=== PATIENT | female | born 1935 | race Caucasian/White ===

== ENCOUNTER 2016-12-04 15:05 | Outpatient (CLI) | payer MEDICARE, OTHER | END 2016-12-04 15:06 | disposition home or self-care (01) | DX: E11.9 Type 2 diabetes mellitus without complications (principal) ==

== ENCOUNTER 2016-12-21 | Outpatient (CLI) | payer MEDICARE, OTHER | END 2016-12-21 13:34 | disposition home or self-care (01) | DX: R55 Syncope and collapse (principal) ==

== ENCOUNTER 2016-12-26 | Outpatient (CLI) | payer MEDICARE, OTHER | END 2016-12-26 16:10 | disposition critical access hospital (66) | DX: R55 Syncope and collapse (principal) | CPT/HCPCS: A0425; A0427 ==

== ENCOUNTER 2016-12-26 16:11 | Inpatient (IN) | payer MEDICARE, OTHER ==
[2016-12-26] MEDS ORDERED: SODIUM CHLORIDE FLUSH 0.9% 10 ML SYRINGE IVP PRN (18:17)
[2016-12-26] MEDS: ATORVASTATIN 10 MG TABLET PO SCH (20:12)
[2016-12-26] MEDS: SODIUM CHLORIDE 0.9% 1,000 ML IV SCH (20:12)
[2016-12-26] MEDS: LISINOPRIL 20 MG TABLET PO SCH (20:17)
[2016-12-26] MEDS: SODIUM CHLORIDE FLUSH 0.9% 10 ML SYRINGE IVP SCH (20:18)
[2016-12-26] MEDS ORDERED: DEXTROSE 5% 1,000 ML IV PRN (20:26)
[2016-12-26] MEDS ORDERED: DEXTROSE GEL 37.5 GM TUBE PO PRN (20:26)
[2016-12-26] MEDS ORDERED: DEXTROSE 50% ABBOJECT 25 GM/50 ML SYRINGE IVP PRN (20:26)
[2016-12-26] MEDS ORDERED: GLUCAGON 1 MG/ML VIAL SUBQ PRN (20:26)
[2016-12-26] MEDS ORDERED: ACETAMINOPHEN 325 MG TABLET PO PRN (20:48)
[2016-12-26] MEDS: INSULIN ASPART 300 UNIT/3 ML PEN SUBQ SCH (21:57)
[2016-12-27] MEDS: SODIUM CHLORIDE 0.9% 1,000 ML IV SCH ×2 (05:54→16:11)
[2016-12-27] MEDS: SODIUM CHLORIDE FLUSH 0.9% 10 ML SYRINGE IVP SCH ×3 (05:55→22:38)
[2016-12-27] MEDS: MULTIVITAMIN TABLET PO SCH (08:15)
[2016-12-27] MEDS: LISINOPRIL 20 MG TABLET PO SCH ×2 (08:15→21:09)
[2016-12-27] MEDS: ASPIRIN EC 81 MG TABLET PO SCH (08:15)
[2016-12-27] MEDS: MAGNESIUM OXIDE 400 MG TABLET PO SCH (08:15)
[2016-12-27] MEDS: INSULIN ASPART 300 UNIT/3 ML PEN SUBQ SCH ×4 (08:16→21:08)
[2016-12-27] MEDS ORDERED: INSULIN GLARGINE 300 UNIT/3 ML PEN SUBQ SCH ×3 (09:00→21:00)
[2016-12-27] MEDS: POLYETHYLENE GLYCOL 3350 17 GM PACKET PO SCH (09:09)
[2016-12-27] MEDS ORDERED: traMADol 50 MG TABLET PO SCH (13:00)
[2016-12-27] MEDS: levETIRAcetam 250 MG TABLET PO SCH ×2 (14:29→21:09)
[2016-12-27] MEDS ORDERED: traMADol 50 MG TABLET PO PRN (15:32)
[2016-12-27] MEDS ORDERED: levETIRAcetam 250 MG TABLET PO SCH (21:00)
[2016-12-27] MEDS: ATORVASTATIN 10 MG TABLET PO SCH (21:09)
[2016-12-28] MEDS: SODIUM CHLORIDE 0.9% 1,000 ML IV SCH (01:23)
[2016-12-28] MEDS: SODIUM CHLORIDE FLUSH 0.9% 10 ML SYRINGE IVP SCH (06:45)
[2016-12-28] MEDS: INSULIN ASPART 300 UNIT/3 ML PEN SUBQ SCH ×2 (07:59→11:48)
[2016-12-28] MEDS: MAGNESIUM OXIDE 400 MG TABLET PO SCH (08:37)
[2016-12-28] MEDS: MULTIVITAMIN TABLET PO SCH (08:38)
[2016-12-28] MEDS: POLYETHYLENE GLYCOL 3350 17 GM PACKET PO SCH (08:38)
[2016-12-28] MEDS: LISINOPRIL 20 MG TABLET PO SCH (08:38)
[2016-12-28] MEDS: ASPIRIN EC 81 MG TABLET PO SCH (08:38)
[2016-12-28] MEDS: levETIRAcetam 250 MG TABLET PO SCH (08:39)
[2016-12-28] MEDS ORDERED: INSULIN GLARGINE 300 UNIT/3 ML PEN SUBQ SCH (09:00)
[2016-12-28] MEDS ORDERED: diltiaZEM CD 180 MG CAPSULE PO SCH (09:00)
[2016-12-28] MEDS ORDERED: amLODIPine 5 MG TABLET PO SCH (09:00)
[2016-12-28] MEDS ORDERED: CARBOXYMETHYLCELLULOSE OPHTH DROPS ONE (09:53)
== END 2016-12-28 15:45 | disposition short-term general hospital (02) | DRG 310 ==
DX: I44.1 Atrioventricular block, second degree (principal); R55 Syncope and collapse; E11.9 Type 2 diabetes mellitus without complications; I10 Essential (primary) hypertension; E78.00 Pure hypercholesterolemia, unspecified; I73.9 Peripheral vascular disease, unspecified; M19.90 Unspecified osteoarthritis, unspecified site; Z79.4 Long term (current) use of insulin; Z79.82 Long term (current) use of aspirin; Z87.891 Personal history of nicotine dependence; Z95.828 Presence of other vascular implants and grafts

== ENCOUNTER 2018-03-22 14:33 | Outpatient (CLI) | payer MEDICARE, OTHER ==
[2018-03-22 17:03] LABS: BASOPHILS % (AUTO) 0.7 %; EOSINOPHILS # (AUTO) 0.2 10^3/uL (0.0-0.7); EOSINOPHILS % (AUTO) 3.6 %; HGB - HEMOGLOBIN 14.8 g/dL (12.0-16.0); LYMPHOCYTES # (AUTO) 1.7 10^3/uL (1.5-3.5); LYMPHOCYTES % (AUTO) 25.6 %; MEAN CORPUSCULAR HEMOGLOBIN 28.6 pg (27.0-31.0); MEAN CORPUSCULAR HGB CONC 32.5 g/dL (32.0-36.0); MEAN CORPUSCULAR VOLUME 88.2 fL (81.0-99.0); MEAN PLATELET VOLUME 8.6 fL (7.9-10.8); MONOCYTES # (AUTO) 0.5 10^3/uL (0.0-1.0); MONOCYTES % (AUTO) 7.5 %; NEUTROPHILS # (AUTO) 4.1 10^3/uL (1.5-6.6); NEUTROPHILS % (AUTO) 62.6 %; PLT - PLATELET COUNT 251 10^3/uL (130-450); RED BLOOD COUNT 5.15 10^6/uL (4.20-5.40); RED CELL DISTRIBUTION WIDTH 13.9 % (12.0-15.0); WHITE BLOOD COUNT 6.6 x10^3/uL (4.8-10.8)
[2018-03-22 17:26] LABS: ALBUMIN 3.9 g/dL (3.2-5.5); ALBUMIN/GLOBULIN RATIO 1.3 (1.0-2.2); ALKALINE PHOSPHATASE 71 IU/L (42-121); ALT ALANINE AMINOTRANSFERASE 22 IU/L (10-60); AST ASPARTATE AMINOTRANSFERASE 25 IU/L (10-42); BILIRUBIN,TOTAL 0.7 mg/dL (0.2-1.0); BUN - BLOOD UREA NITROGEN 27 mg/dL (6-20); CALCIUM 9.2 mg/dL (8.5-10.3); CARBON DIOXIDE - CO2 27 mmol/L (21-32); CHLORIDE 102 mmol/L (101-111); CHOL/HDL RATIO 4.8 (<4.4); CHOLESTEROL 231 mg/dL; GFR - MDRD 53 (>89); GLUCOSE 123 mg/dL (70-100); HB2 TOTAL 16.8 g/dL; HDL CHOLESTEROL 48 mg/dL; HEMOGLOBIN A1C 1.06 g/dL; HEMOGLOBIN A1C % 7.9 % (4.6-6.2); SODIUM 139 mmol/L (135-145)
[2018-03-22 17:39] LABS: LDL CHOLESTEROL,CALCULATED 142 mg/dL; VLDL CHOLESTEROL 41 mg/dL
== END 2018-03-22 14:34 | disposition home or self-care (01) ==
LOC: LAB.F 14:33
PROVIDERS: ATTEND Nurse Practitioner Family
DX: E78.5 Hyperlipidemia, unspecified (principal); E11.9 Type 2 diabetes mellitus without complications; K22.10 Ulcer of esophagus without bleeding
CPT/HCPCS: 36415; 80053; 80061; 82043; 83036; 83721; 84443; 85025

== ENCOUNTER 2018-07-29 08:00 | Outpatient (CLI) | payer MEDICARE, OTHER ==
[2018-07-29 19:07] LABS: HB2 TOTAL 15.7 g/dL; HEMOGLOBIN A1C 1.03 g/dL; HEMOGLOBIN A1C % 8.2 % (4.6-6.2)
== END 2018-07-29 08:01 | disposition home or self-care (01) ==
LOC: LAB.S 08:00
PROVIDERS: ATTEND Nurse Practitioner Family
DX: E11.9 Type 2 diabetes mellitus without complications (principal)
CPT/HCPCS: 36415; 83036

== ENCOUNTER 2018-09-05 07:50 | Day surgery (SDC) | payer MEDICARE, OTHER ==
[~2018-09-05 07:50] MED LIST: LIDOCAINE 1%-EPI 1:100000 30 ML MDV ONE; NEOMYCIN/POLYMYX/DEXAMETH OPHTH OINT ONE
[2018-09-05] MEDS ORDERED: LACTATED RINGERS 500 ML IV ONE ×2 (08:14→09:41)
--- NOTE | 2018-09-05 08:17 | ANESTHESIA ---
Pre-Anesthesia VS, & Labs - Diagnosis Ectropian R lower lid - Procedure R Ectropian repair with lateral canthal tendon tightening, RLL Vital Signs: Last Vital Signs Temp 36.8 C 09/05/18 08:24 Pulse 88 09/05/18 08:24 Resp 17 09/05/18 08:24 BP 201/84 H 09/05/18 08:24 Pulse Ox 94 09/05/18 08:24 Height 5 ft Body Mass Index 32.0 - NPO >8 hours - Is Patient ?: No Home Medications and Allergies Aspirin [Aspir 81] 81 mg PO DAILY 02/04/14 Insulin Glargine,Hum.rec.anlog [Lantus] 15 unit SUBQ QAM 02/04/14 Lisinopril 20 mg PO BID 02/04/14 Lovastatin 10 mg PO QPM 02/04/14 Multivit-Min/FA/Lycopene/Lut [Centrum Silver Tablet] 1 tab PO DAILY 02/04/14 amLODIPine [Norvasc] 5 mg PO DAILY 12/26/16 levETIRAcetam [Levetiracetam] 250 mg PO BID 12/26/16 traMADol [Ultram] 50 mg PO Q4H PRN 12/26/16 Acetaminophen 500 mg PO Q12H PRN 12/27/16 Diltiazem HCl [Diltiazem ER] 90 mg PO BID 12/27/16 Insulin Glargine,Hum.rec.anlog [Lantus] 20 units SUBQ QPM 12/27/16 Insulin Lispro [Humalog] 3 units SUBQ QDDINNER 12/27/16 Magnesium Oxide [Mag Ox] 400 mg PO QPM 12/27/16 Allergies/Adverse Reactions: Allergies Allergy/AdvReac Type Severity Reaction Status Date / Time No Known Drug Allergies Allergy Verified 04/14/16 17:36 Anes History & Medical History - Anesthetic History Anesthesia Complications: reports: No previous complications Family history of Anesthesia Complications: Denies Family history of Malignant Hyperthermia: Denies - Medical History Cardiovascular: reports: Hypertension, High cholesterol, Peripheral Vascular Disease Pulmonary: reports: None Gastrointestinal: reports: None Urinary: reports: None Musculoskeletal: reports: Osteoarthritis Endocrine/Autoimmune: reports: Type 2 diabetes Blood Disorders: reports: None Skin: reports: None Smoking Status: Former smoker - Surgical History Eyes Ears Nose Throat (EENT): Cataracts, Other Cardiothoracic: Pacemaker, Other Gynecologic: section Orthopedic: Knee replacement, Shoulder arthroplasty Exam General: Alert, Oriented x3, Cooperative Dental: Loose/Frag (26, 27 loose), Partials Upper Mouth Openin Fingerbreadth Neck Mobility: Normal Mallampati classification: II Thyromental Distance: 4-6 cm Respiratory: Normal breath sounds Cardiovascular: Regular rate Neurological: Normal speech Mental/Cognitive Status: Alert/Oriented X3, Normal for patient Cognitive Status: Within normal limits Plan Anesthesia Type: MAC Consent for Procedure(s) Verified and Reviewed: Yes Code Status: Attempt Resuscitation ASA classification: 3-Severe systemic disease Is this case an emergency?: No
[2018-09-05] MEDS ORDERED: LIDOCAINE-MPF 2% 5 ML VIAL IM ONE (09:28)
[2018-09-05] MEDS ORDERED: MIDAZOLAM 2 MG/2 ML VIAL IVP ONE (09:28)
[2018-09-05] MEDS ORDERED: PROPOFOL 200 MG/20 ML VIAL IVP ONE (09:28)
[2018-09-05] MEDS ORDERED: LIDOCAINE 1%-EPI 1:100000 20 ML MDV SUBQ ONE ×2 (09:52)
[2018-09-05] MEDS ORDERED: NEOMYCIN/BACITRA/POLYMYX/HC OINT 15 GM TUBE TOP ONE (09:55)
[2018-09-05 10:19] VITALS: BP 129/66
--- NOTE | 2018-09-05 10:40 | OPERATIVE REPORT ---
DATE OF SERVICE: 09/05/2018 Physician: Narinder Ricci MD PREOPERATIVE DIAGNOSIS: Senile ectropion lower lid, right eye. POSTOPERATIVE DIAGNOSIS: Senile ectropion lower lid, right eye. NAME OF PROCEDURE: Lateral canthal tightening ("tarsal strip") of the right lower lid. SURGEON: Narinder Ricci MD. ANESTHESIA: Monitored anesthesia care. COMPLICATIONS: None. OPERATIVE INDICATIONS: This is an 83-year-old woman with irritating ectropion causing eye irritation and epiphora. We discussed medical and surgical procedures to treat this and she decided on surgical repair. She was consented at length concerning risks and benefits of lateral canthal tightening and she expressed desire to proceed with surgery. OPERATIVE PROCEDURE: The patient was taken to OR #3 and placed under monitored anesthesia care. A surgical timeout was conducted confirming correct patient, correct procedure, and correct surgical site. Topical local anesthesia was obtained with 1% lidocaine with epinephrine along the superior and inferior edge of the lateral canthus and then also deep through the conjunctiva to the orbital rim. The eye was marked and a plastics drape was placed around the eye in a sterile fashion. A clamp was placed across the lateral canthus to the orbital rim for hemostasis, then Jared scissors were used to cut through the lateral canthus for canthotomy, and also for a cantholysis of the inferior alicja of the lateral canthal tendon. Once the eyelid was mobilized, a pocket was created between the anterior and posterior lamellae of the lids, then the posterior lower eyelid was cut below the tarsus to create the tarsal strip. The lid margin was excised from the top of the strip and conjunctival epithelium removed from the posterior lamella by scaping it with a #15 scapel. A double-armed 4-0 Mersilene suture with S2 needles was then passed posterior to anterior through the tarsus and again with the same needle going anterior to posterior to create an anterior loop on the tarsal strip. These 2 sutures were then used to attach to the inner orbital rim at the tubercle laterally and left loose. A 3 mm piece of the lid margin was then excised from the upper lid laterally. A 5-0 Vicryl was passed between the edge of the tarsal strip from anterior to posterior and then posterior to anterior on the upper lid and tightened to recreate the canthus. Then, the 4-0 Mersilene was tied and locked, cut long, and left under the skin. Another deep 5-0 Vicryl throw was also used to reapproximate the deep soft tissues. A triangle of redundant skin was removed inferiorly from the lower lid. Several running 5-0 Vicryl sutures were used to reapproximate the skin. The area was cleaned and then dressed with Maxitrol ointment. The patient was taken from the operating room in good condition and given postoperative instructions. TD: 09/05/2018 10:18 [place]
== END 2018-09-05 07:51 | disposition home or self-care (01) ==
LOC: SDS 07:50
PROVIDERS: ATTEND Ophthalmology
PROC: 08SQ0ZZ Reposition Right Lower Eyelid, Open Approach (ICD-10-PCS; principal; 2018-09-05 09:00)
DX: H02.132 Senile ectropion of right lower eyelid (principal); I10 Essential (primary) hypertension; E11.51 Type 2 diabetes mellitus with diabetic peripheral angiopathy without gangrene; Z95.0 Presence of cardiac pacemaker; Z79.4 Long term (current) use of insulin; Z87.891 Personal history of nicotine dependence
CPT/HCPCS: 67917; A9270

== ENCOUNTER 2019-04-07 14:30 | Outpatient (CLI) | payer MEDICARE, OTHER ==
[2019-04-07 18:29] LABS: BASOPHILS # (AUTO) 0.1 10^3/uL (0.0-0.1); BASOPHILS % (AUTO) 0.8 %; EOSINOPHILS # (AUTO) 0.2 10^3/uL (0.0-0.7); EOSINOPHILS % (AUTO) 3.2 %; HGB - HEMOGLOBIN 14.5 g/dL (12.0-16.0); LYMPHOCYTES # (AUTO) 1.6 10^3/uL (1.5-3.5); MEAN CORPUSCULAR HEMOGLOBIN 29.4 pg (27.0-31.0); MEAN CORPUSCULAR VOLUME 89.1 fL (81.0-99.0); MONOCYTES # (AUTO) 0.5 10^3/uL (0.0-1.0); MONOCYTES % (AUTO) 7.3 %; NEUTROPHILS # (AUTO) 4.6 10^3/uL (1.5-6.6); NEUTROPHILS % (AUTO) 65.7 %; PLT - PLATELET COUNT 246 10^3/uL (130-450); RED BLOOD COUNT 4.92 10^6/uL (4.20-5.40); RED CELL DISTRIBUTION WIDTH 13.5 % (12.0-15.0)
[2019-04-07 18:33] LABS: CALCIUM 8.9 mg/dL (8.5-10.3); CREATININE 1.4 mg/dL (0.4-1.0)
[2019-04-07 19:07] LABS: HB2 TOTAL 15.5 g/dL; HEMOGLOBIN A1C 1.02 g/dL; HEMOGLOBIN A1C % 8.2 % (4.6-6.2)
== END 2019-04-07 14:31 | disposition home or self-care (01) ==
LOC: LAB.F 14:30
PROVIDERS: ATTEND Nurse Practitioner
DX: E11.42 Type 2 diabetes mellitus with diabetic polyneuropathy (principal)
CPT/HCPCS: 36415; 80048; 82043; 83036; 85025

== ENCOUNTER 2019-06-12 14:03 | Outpatient (CLI) | payer MEDICARE, OTHER ==
[2019-06-12 17:38] LABS: HGB - HEMOGLOBIN 14.5 g/dL (12.0-16.0); MEAN CORPUSCULAR HEMOGLOBIN 29.4 pg (27.0-31.0); MEAN CORPUSCULAR HGB CONC 32.7 g/dL (32.0-36.0); MEAN CORPUSCULAR VOLUME 89.9 fL (81.0-99.0); MEAN PLATELET VOLUME 11.6 fL (7.9-10.8); RED BLOOD COUNT 4.93 10^6/uL (4.20-5.40); RED CELL DISTRIBUTION WIDTH 13.3 % (12.0-15.0); WHITE BLOOD COUNT 8.2 x10^3/uL (4.8-10.8)
[2019-06-12 18:31] LABS: CALCIUM 9.3 mg/dL (8.5-10.3); CREATININE 1.5 mg/dL (0.4-1.0)
[2019-06-12 19:00] LABS: CREATININE,URINE 119.1 mg/dL; PROTEIN/CREATININE RATIO,URINE 1.9 (<=0.2)
== END 2019-06-12 14:04 | disposition home or self-care (01) ==
LOC: LAB.S 14:03
PROVIDERS: ATTEND Internal Medicine Nephrology
DX: N05.9 Unspecified nephritic syndrome with unspecified morphologic changes (principal); D70.9 Neutropenia, unspecified; D63.1 Anemia in chronic kidney disease; R80.9 Proteinuria, unspecified
CPT/HCPCS: 36415; 80048; 82570; 84156; 85027

== ENCOUNTER 2019-06-20 16:48 | Outpatient (CLI) | payer MEDICARE, OTHER ==
[2019-06-23 11:55] LABS: ANA SCREEN NEGATIVE (NEGATIVE)
[2019-06-24 15:22] LABS: COMPLEMENT COMPONENT C3C 176 mg/dL; COMPLEMENT COMPONENT C4C 45 mg/dL
[2019-06-24 22:27] LABS: ALPHA 1 GLOBULIN 0.3 g/dL (0.2-0.3); ALPHA 2 GLOBULIN 0.9 g/dL (0.5-0.9); BETA 1 GLOBULIN 0.5 g/dL (0.4-0.6); BETA 2 GLOBULIN 0.4 g/dL (0.2-0.5); GAMMA GLOBULIN 0.8 g/dL (0.8-1.7)
== END 2019-06-20 16:49 | disposition home or self-care (01) ==
LOC: LAB 16:48
PROVIDERS: ATTEND Internal Medicine Nephrology
DX: L93.2 Other local lupus erythematosus (principal); D89.89 Other specified disorders involving the immune mechanism, not elsewhere classified; D47.2 Monoclonal gammopathy
CPT/HCPCS: 36415; 84155; 84165; 86038; 86160

== ENCOUNTER 2019-08-08 11:30 | Outpatient (CLI) | payer MEDICARE, OTHER ==
[2019-08-08 18:16] LABS: CREATININE 1.2 mg/dL (0.4-1.0)
== END 2019-08-08 11:31 | disposition home or self-care (01) ==
LOC: LAB.S 11:30
PROVIDERS: ATTEND Internal Medicine Nephrology
DX: N05.9 Unspecified nephritic syndrome with unspecified morphologic changes (principal)
CPT/HCPCS: 36415; 80048

== ENCOUNTER 2019-09-10 13:39 | Outpatient (CLI) | payer MEDICARE, OTHER ==
[2019-09-10 17:43] LABS: CALCIUM 9.2 mg/dL (8.5-10.3); CREATININE 1.5 mg/dL (0.4-1.0)
== END 2019-09-10 13:40 | disposition home or self-care (01) ==
LOC: LAB.S 13:39
PROVIDERS: ATTEND Internal Medicine Nephrology
DX: N05.9 Unspecified nephritic syndrome with unspecified morphologic changes (principal)
CPT/HCPCS: 36415; 80048

== ENCOUNTER 2019-10-10 13:31 | Outpatient (CLI) | payer MEDICARE, OTHER ==
[2019-10-10 17:41] LABS: CALCIUM 9.3 mg/dL (8.5-10.3); CREATININE 1.4 mg/dL (0.4-1.0)
== END 2019-10-10 13:32 | disposition home or self-care (01) ==
LOC: LAB.S 13:31
PROVIDERS: ATTEND Internal Medicine Nephrology
DX: N05.9 Unspecified nephritic syndrome with unspecified morphologic changes (principal)
CPT/HCPCS: 36415; 80048

== ENCOUNTER 2019-11-07 14:03 | Outpatient (CLI) | payer MEDICARE, OTHER ==
[2019-11-07 18:00] LABS: CALCIUM 9.4 mg/dL (8.5-10.3); CREATININE 1.2 mg/dL (0.4-1.0)
[2019-11-07 18:24] LABS: CREATININE,URINE 69.1 mg/dL
[2019-11-07 18:39] LABS: HB2 TOTAL 14.8 g/dL; HEMOGLOBIN A1C 0.93 g/dL; HEMOGLOBIN A1C % 7.9 % (4.6-6.2)
== END 2019-11-07 14:04 | disposition home or self-care (01) ==
LOC: LAB.S 14:03
PROVIDERS: ATTEND Internal Medicine Nephrology
DX: N05.9 Unspecified nephritic syndrome with unspecified morphologic changes (principal); E11.9 Type 2 diabetes mellitus without complications; R80.9 Proteinuria, unspecified
CPT/HCPCS: 36415; 80048; 82570; 83036; 84156

== ENCOUNTER 2021-03-07 14:33 | Outpatient (CLI) | payer MEDICARE, OTHER ==
[2021-03-07 20:21] LABS: BASOPHILS % (AUTO) 0.5 %; EOSINOPHILS # (AUTO) 0.2 10^3/uL (0.0-0.7); EOSINOPHILS % (AUTO) 3.5 %; HCT - HEMATOCRIT 42.7 % (37.0-47.0); HGB - HEMOGLOBIN 13.4 g/dL (12.0-16.0); LYMPHOCYTES # (AUTO) 1.4 10^3/uL (1.5-3.5); LYMPHOCYTES % (AUTO) 21.3 %; MEAN CORPUSCULAR HEMOGLOBIN 28.8 pg (27.0-31.0); MEAN CORPUSCULAR HGB CONC 31.4 g/dL (32.0-36.0); MEAN CORPUSCULAR VOLUME 91.6 fL (81.0-99.0); MEAN PLATELET VOLUME 10.9 fL (7.9-10.8); MONOCYTES # (AUTO) 0.4 10^3/uL (0.0-1.0); MONOCYTES % (AUTO) 6.5 %; NEUTROPHILS # (AUTO) 4.5 10^3/uL (1.5-6.6); NEUTROPHILS % (AUTO) 67.6 %; PLT - PLATELET COUNT 276 10^3/uL (130-450); RED BLOOD COUNT 4.66 10^6/uL (4.20-5.40); RED CELL DISTRIBUTION WIDTH 13.5 % (12.0-15.0); WHITE BLOOD COUNT 6.6 x10^3/uL (4.8-10.8)
[2021-03-07 20:55] LABS: ALBUMIN/GLOBULIN RATIO 1.4 (1.0-2.2); ALKALINE PHOSPHATASE 57 IU/L (42-121); ALT ALANINE AMINOTRANSFERASE 19 IU/L (10-60); AST ASPARTATE AMINOTRANSFERASE 20 IU/L (10-42); BILIRUBIN,TOTAL 0.5 mg/dL (0.2-1.0); BUN - BLOOD UREA NITROGEN 49 mg/dL (6-20); CARBON DIOXIDE - CO2 24 mmol/L (21-32); CHLORIDE 103 mmol/L (101-111); CHOL/HDL RATIO 4.7 (<4.4); CHOLESTEROL 231 mg/dL; CREATININE 1.5 mg/dL (0.4-1.0); GFR - MDRD 33 (>89); GLUCOSE 259 mg/dL (70-100); HDL CHOLESTEROL 49 mg/dL; LDL CHOLESTEROL,CALCULATED 132 mg/dL; LDL/HDL RATIO 2.7 (<4.4); POTASSIUM 5.8 mmol/L (3.5-5.0); SODIUM 136 mmol/L (135-145); TOTAL PROTEIN 6.9 g/dL (6.7-8.2); TRIGLYCERIDES 250 mg/dL; VLDL CHOLESTEROL 50 mg/dL
[2021-03-07 20:59] LABS: ESTIMATED AVERAGE GLUCOSE 166 mg/dL (70-100); HEMOGLOBIN A1c% 7.4 % (4.27-6.07)
[2021-03-07 21:02] LABS: THYROID STIMULATING HORMONE 4.09 uIU/mL (0.34-5.60)
[2021-03-07 21:12] LABS: CREATININE,URINE 117.3 mg/dL; MICROALBUM/CREATININE RATIO,UR 1219.1 ug/mg (<30.0)
== END 2021-03-07 14:34 | disposition home or self-care (01) ==
LOC: LAB.S 14:33
PROVIDERS: ATTEND Registered Nurse
DX: I12.9 Hypertensive chronic kidney disease with stage 1 through stage 4 chronic kidney disease, or unspecified chronic kidney disease (principal); E11.22 Type 2 diabetes mellitus with diabetic chronic kidney disease; N18.9 Chronic kidney disease, unspecified; Z79.4 Long term (current) use of insulin; E11.40 Type 2 diabetes mellitus with diabetic neuropathy, unspecified; E78.5 Hyperlipidemia, unspecified
CPT/HCPCS: 36415; 80053; 80061; 82043; 82570; 83036; 83721; 84443; 85025

== ENCOUNTER 2021-03-29 09:41 | Emergency (ER) | payer MEDICARE, OTHER ==
[2021-03-29] MEDS ORDERED: KETOROLAC 60 MG/2 ML VIAL IM STA (10:47)
--- NOTE | 2021-03-29 10:49 | ED Physician Documentation ---
History of Present Illness - Stated complaint Stated Complaint: R EAR X - Chief complaint Chief Complaint: Neuro - History obtained from History obtained from: Patient - Additonal information Additional information: Patient comes emergency department chief complaint of lancinating pain over her right ear, scalp, and face. Patient states this started several days ago and that first it just felt like the outside of her ear. She states that she did not feel that there was any pain or issue deeper inside her ear. Patient states pain began to spread and would shoot up into her right temporal scalp and out onto her cheek. She also noticed some swollen lymph nodes around her ear. No facial swelling. No rash of any kind. Patient denies any visual issues or eye pain. No dental pain. Patient states that she has a little pain in her right neck musculature but this is minor compared to the sharp, pulsating, shooting pains that she has been experiencing. Patient states she tried taking extra tramadol that she had for her knees, but that this did not seem to help at all. Patient denies any fevers or chills. No cough or rhinorrhea. No other complaints at this time. No history of trigeminal neuralgia or shingles. Review of Systems Ten Systems: 10 systems reviewed and negative Constitutional: reports: Reviewed and negative Eyes: reports: Reviewed and negative Ears: reports: Ear pain (Face pain) Nose: reports: Reviewed and negative Throat: reports: Reviewed and negative Cardiac: reports: Reviewed and negative Respiratory: reports: Reviewed and negative GI: reports: Reviewed and negative : reports: Reviewed and negative Skin: reports: Reviewed and negative Musculoskeletal: reports: Reviewed and negative Neurologic: reports: Reviewed and negative Psychiatric: reports: Reviewed and negative Endocrine: reports: Reviewed and negative Immunocompromised: reports: Reviewed and negative PD PAST MEDICAL HISTORY - Past Medical History Cardiovascular: Hypertension, High cholesterol, Peripheral Vascular Disease Respiratory: None Endocrine/Autoimmune: Type 2 diabetes GI: None : None HEENT: None Psych: None Musculoskeletal: Osteoarthritis Derm: None - Past Surgical History Past Surgical History: Yes Ortho: Knee replacement, 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 Cardiovascular: Pacemaker, Other HEENT: Cataracts, Other - Present Medications Home Medications: Ambulatory Orders Medication Instructions Recorded Confirmed Aspirin [Aspir 81] 81 mg PO DAILY 02/04/14 09/05/18 Lovastatin 10 mg PO QPM 02/04/14 09/05/18 Multivit-Min/FA/Lycopene/Lut 1 tab PO DAILY 02/04/14 09/05/18 [Centrum Silver Tablet] amLODIPine [Norvasc] 5 mg PO DAILY 12/26/16 09/05/18 Insulin Glargine,Hum.rec.anlog 20 units SUBQ QPM 12/27/16 09/05/18 [Lantus] Magnesium Oxide [Mag Ox] 400 mg PO QPM 12/27/16 09/05/18 Gabapentin [Neurontin] 300 mg PO TID PRN #21 03/29/21 predniSONE [Deltasone] 60 mg PO DAILY 5 Days #15 tablet 03/29/21 - Allergies Allergies/Adverse Reactions: Allergies Allergy/AdvReac Type Severity Reaction Status Date / Time No Known Drug Allergies Allergy Verified 03/29/21 10:16 - Social History Does the pt smoke?: Yes Smoking Status: Former smoker PD ED PE NORMAL - Vitals Vital signs reviewed: Yes - General General: Alert and oriented X 3, Well developed/nourished, Other (Patient intermittently grimaces and cries out, holding her ear and face. In between, no distress.) - HEENT HEENT: Atraumatic, PERRL, EOMI, Ears normal, Moist mucous membranes - Neck Neck: Supple, no meningeal sign - Cardiac Cardiac: RRR, No murmur - Respiratory Respiratory: No respiratory distress, Clear bilaterally - Abdomen Abdomen: Soft, Non tender, Non distended - Derm Derm: Normal color, Warm and dry, No rash - Extremities Extremities: No deformity, No edema - Neuro Neuro: Alert and oriented X 3, chain carrier 2-12 intact, No motor deficit, No sensory deficit, Normal speech - Psych Psych: Normal mood, Normal affect Results - Vitals Vitals: Vital Signs - 24 hr 03/29/21 10:04 Temperature 36.8 C Heart Rate 66 Respiratory 22 Rate Blood Pressure 164/66 H O2 Saturation 99 Oxygen O2 Source Room air PD MEDICAL DECISION MAKING - ED course Complexity details: considered differential, d/w patient ED course: I discussed with the patient that her symptoms sound more like nerve pain and could be outside sales representative of trigeminal neuralgia or a shingles type syndrome. We have discussed, since the patient drove herself here, that we will treat this symptomatically for now, but she will need to follow-up with her primary care physician for further evaluation of the symptoms last for more than a week. We discussed the usual indications for return, including fevers or visual changes. Departure - Departure Disposition: 01 Home, Self Care Clinical Impression: Trigeminal neuralgia of right side of face Condition: Stable Instructions: ED Neuralgia Trigeminal Prescriptions: predniSONE [Deltasone] 60 mg PO DAILY 5 Days #15 tablet Gabapentin [Neurontin] 300 mg PO TID PRN #21 PRN Reason: Pain Comments: Please call your doctor today to make an appointment to be seen within the next week if your symptoms have not resolved.
[2021-03-29] MEDS ORDERED: predniSONE 20 MG TABLET PO STA (10:50)
[2021-03-29 11:18] VITALS: BP 149/62
== END 2021-03-29 11:19 | disposition home or self-care (01) ==
LOC: ED 09:41
DX: G50.0 Trigeminal neuralgia (principal); I10 Essential (primary) hypertension; E11.51 Type 2 diabetes mellitus with diabetic peripheral angiopathy without gangrene; Z79.4 Long term (current) use of insulin; Z79.82 Long term (current) use of aspirin; Z87.891 Personal history of nicotine dependence
CPT/HCPCS: 96372; 99283; 99284; J7512

== ENCOUNTER 2022-01-16 15:22 | Outpatient (CLI) | payer MEDICARE, OTHER | END 2022-01-16 15:23 | disposition home or self-care (01) | LOC: LAB.S 15:22 | PROVIDERS: ATTEND Registered Nurse | DX: Z53.9 Procedure and treatment not carried out, unspecified reason (principal) ==

== ENCOUNTER 2022-01-18 14:06 | Outpatient (CLI) | payer MEDICARE, OTHER ==
[2022-01-18 20:34] LABS: BASOPHILS # (AUTO) 0.1 10^3/uL (0.0-0.1); BASOPHILS % (AUTO) 0.8 %; EOSINOPHILS # (AUTO) 0.3 10^3/uL (0.0-0.7); EOSINOPHILS % (AUTO) 4.8 %; HCT - HEMATOCRIT 40.5 % (37.0-47.0); HGB - HEMOGLOBIN 12.9 g/dL (12.0-16.0); LYMPHOCYTES # (AUTO) 1.7 10^3/uL (1.5-3.5); LYMPHOCYTES % (AUTO) 25.5 %; MEAN CORPUSCULAR HEMOGLOBIN 28.2 pg (27.0-31.0); MEAN CORPUSCULAR HGB CONC 31.9 g/dL (32.0-36.0); MEAN CORPUSCULAR VOLUME 88.6 fL (81.0-99.0); MEAN PLATELET VOLUME 10.6 fL (7.9-10.8); MONOCYTES # (AUTO) 0.7 10^3/uL (0.0-1.0); NEUTROPHILS # (AUTO) 3.8 10^3/uL (1.5-6.6); NEUTROPHILS % (AUTO) 58.4 %; PLT - PLATELET COUNT 325 10^3/uL (130-450); RED BLOOD COUNT 4.57 10^6/uL (4.20-5.40); RED CELL DISTRIBUTION WIDTH 13.3 % (12.0-15.0); WHITE BLOOD COUNT 6.5 x10^3/uL (4.8-10.8)
[2022-01-18 20:46] LABS: ALBUMIN 3.7 g/dL (3.2-5.5); ALBUMIN/GLOBULIN RATIO 1.1 (1.0-2.2); ALKALINE PHOSPHATASE 73 IU/L (42-121); ALT ALANINE AMINOTRANSFERASE 26 IU/L (10-60); AST ASPARTATE AMINOTRANSFERASE 26 IU/L (10-42); BILIRUBIN,TOTAL 0.5 mg/dL (0.2-1.0); BUN - BLOOD UREA NITROGEN 33 mg/dL (6-20); CALCIUM 9.4 mg/dL (8.5-10.3); CARBON DIOXIDE - CO2 28 mmol/L (21-32); CHLORIDE 102 mmol/L (101-111); CHOL/HDL RATIO 2.7 (<4.4); CHOLESTEROL 159 mg/dL; CREATININE 1.6 mg/dL (0.4-1.0); GFR - MDRD 31 (>89); GLUCOSE 91 mg/dL (70-100); HDL CHOLESTEROL 58 mg/dL; LDL CHOLESTEROL,CALCULATED 78 mg/dL; LDL/HDL RATIO 1.3 (<4.4); POTASSIUM 4.7 mmol/L (3.5-5.0); SODIUM 139 mmol/L (135-145); TRIGLYCERIDES 113 mg/dL; VLDL CHOLESTEROL 23 mg/dL
[2022-01-18 20:58] LABS: THYROID STIMULATING HORMONE 4.83 uIU/mL (0.34-5.60)
[2022-01-18 21:16] LABS: CREATININE,URINE 66.1 mg/dL; MICROALBUM/CREATININE RATIO,UR 1558.2 ug/mg (<30.0)
[2022-01-18 21:51] LABS: ESTIMATED AVERAGE GLUCOSE 192 mg/dL (70-100); HEMOGLOBIN A1c% 8.3 % (4.27-6.07)
== END 2022-01-18 14:07 | disposition home or self-care (01) ==
LOC: LAB.S 14:06
PROVIDERS: ATTEND Registered Nurse
DX: I12.9 Hypertensive chronic kidney disease with stage 1 through stage 4 chronic kidney disease, or unspecified chronic kidney disease (principal); E11.22 Type 2 diabetes mellitus with diabetic chronic kidney disease; N18.9 Chronic kidney disease, unspecified; E11.42 Type 2 diabetes mellitus with diabetic polyneuropathy; Z79.4 Long term (current) use of insulin; E78.5 Hyperlipidemia, unspecified
CPT/HCPCS: 36415; 80053; 80061; 82043; 82570; 83036; 83721; 84443; 85025

== ENCOUNTER 2022-11-28 14:15 | Outpatient (CLI) | payer MEDICARE, OTHER ==
[2022-11-28 20:32] LABS: CREATININE 1.6 mg/dL (0.4-1.0); POTASSIUM 5.1 mmol/L (3.5-5.0)
[2022-11-28 20:59] LABS: ESTIMATED AVERAGE GLUCOSE 206 mg/dL (70-100); HEMOGLOBIN A1c% 8.8 % (4.27-6.07)
== END 2022-11-28 14:16 | disposition home or self-care (01) ==
LOC: LAB.S 14:15
PROVIDERS: ATTEND Registered Nurse
DX: E11.42 Type 2 diabetes mellitus with diabetic polyneuropathy (principal)
CPT/HCPCS: 36415; 80048; 82043; 82570; 83036

== ENCOUNTER 2023-02-17 13:05 | Emergency (ER) | payer MEDICARE, OTHER ==
--- OUTSIDE RECORDS SUMMARY | 2023-02-17 13:58 | EXTERNAL MEDICAL SUMMARY RPT | Continuity of Care Document ---
:1935 Author Organization [facility] Address [address] [place] [address] Phone Care Team Providers Name Role Phone Unavailable Unavailable Unavailable Alea Hayes Unavailable Unavailable Allergies No information. Encounters No information. Functional Status No information. Immunizations No information. Medications date description facility 2022-11-29 00:00 lisinopril All 2022-11-29 00:00 lisinopril All 2022-11-29 00:00 lisinopril All 2022-11-29 00:00 lisinopril All 2022-11-29 00:00 atorvastatin All 2022-11-29 00:00 atorvastatin All 2022-11-29 00:00 atorvastatin All 2022-11-29 00:00 atorvastatin All Problems date description facility 2022-11-29 00:00 Chronic obstructive lung disease All 2022-11-29 00:00 Claudication All 2022-11-29 00:00 Arthritis All 2022-11-29 00:00 Hypertensive disorder All 2022-11-29 00:00 Unspecified essential hypertension All 2022-11-29 00:00 Erosive esophagitis All 2022-11-29 00:00 Dysphagia All 2022-11-29 00:00 Occlusion and stenosis of carotid artery , without All mention of cerebral infarction 2022-11-29 00:00 Chronic airway obstruction, not elsewhe re classified All 2022-11-29 00:00 Carotid artery stenosis All 2022-11-29 00:00 Arthropathy, unspecified, site unspecif ied All 2022-11-29 00:00 Essential (primary) hypertension All 2022-11-29 00:00 Occlusion and stenosis of unspecified c arotid artery All 2022-11-29 00:00 Peripheral vascular disease, unspecifie d All 2022-11-29 00:00 Chronic obstructive pulmonary disease, unspecified All 2022-11-29 00:00 Other esophagitis All 2022-11-29 00:00 Unspecified osteoarthritis, unspecified site All 2022-11-29 00:00 Chronic kidney disease, unspecified Al l 2022-11-29 00:00 Dysphagia, unspecified All Procedures No information. Results/Labs test date author facility value unit interpret ation Result panel 1 (unknown) (no date) (unknown) All (no value) (units unknown ) (unknown) Result panel 2 (unknown) (no date) (unknown) All (no value) (units unknown ) (unknown) Result panel 3 (unknown) (no date) (unknown) All (no value) (units unknown ) (unknown) Result panel 4 (unknown) (no date) (unknown) All (no value) (units unknown ) (unknown) Result panel 5 (unknown) (no date) (unknown) All (no value) (units unknown ) (unknown) Result panel 6 (unknown) (no date) (unknown) All (no value) (units unknown ) (unknown) Result panel 7 (unknown) (no date) (unknown) All (no value) (units unknown ) (unknown) Result panel 8 (unknown) (no date) (unknown) All (no value) (units unknown ) (unknown) Result panel 9 (unknown) (no date) (unknown) All (no value) (units unknown ) (unknown) Result panel 10 (unknown) (no date) (unknown) All (no value) (units unknown ) (unknown) Result panel 11 (unknown) (no date) (unknown) All (no value) (units unknown ) (unknown) Result panel 12 (unknown) (no date) (unknown) All (no value) (units unknown ) (unknown) Result panel 13 (unknown) (no date) (unknown) All (no value) (units unknown ) (unknown) Result panel 14 (unknown) (no date) (unknown) All (no value) (units unknown ) (unknown) Result panel 15 (unknown) (no date) (unknown) All (no value) (units unknown ) (unknown) Result panel 16 (unknown) (no date) (unknown) All (no value) (units unknown ) (unknown) Result panel 17 (unknown) (no date) (unknown) All (no value) (units unknown ) (unknown) Result panel 18 (unknown) (no date) (unknown) All (no value) (units unknown ) (unknown) Result panel 19 (unknown) (no date) (unknown) All (no value) (units unknown ) (unknown) Result panel 20 (unknown) (no date) (unknown) All (no value) (units unknown ) (unknown) Result panel 21 (unknown) (no date) (unknown) All (no value) (units unknown ) (unknown) Result panel 22 (unknown) (no date) (unknown) All (no value) (units unknown ) (unknown) Result panel 23 (unknown) (no date) (unknown) All (no value) (units unknown ) (unknown) Result panel 24 (unknown) (no date) (unknown) All (no value) (units unknown ) (unknown) Social History No information. Vital Signs No information.
--- NOTE | 2023-02-17 14:15 | CT Report ---
PROCEDURE: HEAD WO INDICATIONS: vision loss TECHNIQUE: Noncontrast 4.5 mm thick angled axial sections acquired from the foramen magnum to the vertex. For r adiation dose reduction, the following was used: automated exposure control, adjustment of mA and/or kV according to patient size. COMPARISON: MRI of brain dated 12/27/2016. FINDINGS: Image quality: Excellent. CSF spaces: Basal cisterns are patent. No extra-axial fluid collections. Ventricles are normal in size and shape. Brain: Moderate size area of hypodensity involving left occipital lobe is seen with mass effect on l eft occipital horn. No significant midline shift. No intracranial hemorrhage. Sultana-white matter inte rface is normal. Skull and face: Calvarium and visualized facial bones are intact, without suspicious lesions. Sinuses: Visualized sinuses and mastoids are clear. IMPRESSION: 1. Finding is suggestive of acute to subacute infarction involving left occipital lobe with mass effe ct on the adjacent left occipital horn. Differential diagnosis would include intracranial mass in thi s area with adjacent vasogenic edema. Consider MRI of brain without and with contrast for further mila luation. 2. No acute intracranial bleed. No significant midline shift. Reviewed by: Eduardo Royal MD on 02/17/2023 2:14 PM PDT Approved by: Eduardo Royal MD on 02/17/2023 2:14 PM PDT Station ID: [id number]
--- NOTE | 2023-02-17 14:48 | ED Physician Documentation ---
PD HPI FOCAL NEURO - Stated complaint Stated Complaint: HEAD PX,MOBILITY/VISION LOSS - Chief complaint Chief Complaint: Neuro - History obtained from History obtained from: Patient, Family - Additional information Additional information: This is a ar 88-year-old woman who presents with her granddaughter. About 6 days ago she developed severe left-sided headache and that has gotten mostly better but then she started to have some trouble with her vision which is hard for her to verbalize, that said her granddaughter noted that when someone's was standing on her right side she could not see them. No history of stroke or primary malignancy. 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 Cardiovascular: Pacemaker, Other HEENT: Cataracts, Other - Present Medications Home Medications: Ambulatory Orders Medication Instructions Recorded Confirmed Aspirin [Aspir 81] 81 mg PO DAILY 02/04/14 09/05/18 Lovastatin 10 mg PO QPM 02/04/14 09/05/18 Multivit-Min/FA/Lycopene/Lut 1 tab PO DAILY 02/04/14 09/05/18 [Centrum Silver Tablet] amLODIPine [Norvasc] 5 mg PO DAILY 12/26/16 09/05/18 Insulin Glargine,Hum.rec.anlog 20 units SUBQ QPM 12/27/16 09/05/18 [Lantus] Magnesium Oxide [Mag Ox] 400 mg PO QPM 12/27/16 09/05/18 Gabapentin [Neurontin] 300 mg PO TID PRN #21 03/29/21 predniSONE [Deltasone] 60 mg PO DAILY 5 Days #15 tablet 03/29/21 - Allergies Allergies/Adverse Reactions: Allergies Allergy/AdvReac Type Severity Reaction Status Date / Time No Known Drug Allergies Allergy Verified 03/29/21 10:16 - Social History Does the pt smoke?: Yes Smoking Status: Former smoker PD ED PE NORMAL - Vitals Vital signs reviewed: Yes - General General: Alert and oriented X 3, No acute distress - HEENT HEENT: PERRL, EOMI - Neck Neck: Supple, no meningeal sign, No bony TTP - Cardiac Cardiac: RRR, No murmur - Respiratory Respiratory: No respiratory distress, Clear bilaterally - Abdomen Abdomen: Non tender - Neuro Neuro: Alert and oriented X 3, No motor deficit, No sensory deficit, Normal speech Eye Opening: Spontaneous Motor: Obeys Commands Verbal: Oriented GCS Score: 15 NIHSS - Time Time: 14:30 - Level of Consciousness Level of consciousness: (0) Alert, Keenly responsive LOC Questions: (0) Answers both Q's correct LOC Commands: (0) Performs both correctly - Gaze Best Gaze: (0) Normal - Visual Visual: (2) Complete Hemianopia (Right visual field) - Facial Palsy Facial Palsy: (0) Normal, symmetrical movement - Motor Arms (both separate) Motor Arm (right): (0) No drift Motor Arm (left): (0) No drift - Motor Legs (both separate) Motor Leg (right): (0) No drift Motor Leg (left): (0) No drift - Limb Ataxia Limb Ataxia: (0) Absent - Sensory Sensory: (0) Normal - Best Language Best Language: (0) No aphasia - Dysarthria Dysarthria: (0) Normal - Extinction and Inattention (formally neg Extinction and inattention: (0) No abnormality - Total Score/Results Total Score/Result: 2 Results - Vitals Vitals: Vital Signs - 24 hr 02/17/23 02/17/23 13:13 15:30 Temperature 36.2 C L Heart Rate 64 64 Respiratory 18 25 H Rate Blood Pressure 215/73 H 209/60 H O2 Saturation 97 98 Oxygen O2 Source Room air - Labs Labs: Laboratory Tests 02/17/23 02/17/23 15:14 15:14 WBC 6.6 RBC 4.78 Hgb 13.8 Hct 42.7 MCV 89.3 MCH 28.9 MCHC 32.3 RDW 14.0 Plt Count 272 MPV 10.3 Neut # (Auto) 4.5 Lymph # (Auto) 1.4 L [place] # (Auto) 0.4 Eos # (Auto) 0.2 Baso # (Auto) 0.0 Absolute Nucleated RBC 0.00 Nucleated RBC % 0.0 Sodium 136 Potassium 5.1 H Chloride 104 Carbon Dioxide 24 Anion Gap 8.0 BUN 39 H Creatinine 1.8 H Estimated GFR (MDRD) 27 L Glucose 482 H Calcium 8.7 - Rads (name of study) CT Head Relevant Findings:: Final report received (CT of the head without contrast demonstrates acute to subacute infarction of the left occipital lobe with mass effect. Differential would also include intracranial mass with vasogenic edema.), EMP independent interpretation of test PD Medical Decision Making - ED course ED course: 88-year-old woman presents with resolved headache but right visual field deficit and some other neurologic symptoms and is found to have an abnormality in the left occipital lobe, more likely stroke than mass, but both are on the differential. She has a permanent pacemaker. As such MRI is not an option. I did speak with Dr. Royal, the radiologist who felt a postcontrast CT would give us some more information and this is ordered. 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 I discussed the case by phone with Dr. Santo, telestroke neurologist who felt that this was a completed stroke and she could probably safely be discharged on aspirin with her antihypertensives and anticipatory guidance. 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 This will probably lead to some chronic issues with vision especially to your right. You should follow-up with your primary care physician for consideration of echocardiography and cardiology work-up to rule out an embolic source of the stroke. Until then be sure to be compliant with your blood pressure medicines and take a baby aspirin a day. If you still drive, probably reasonable to not drive given the difficulty you will have with your vision.
[2023-02-17] MEDS ORDERED: amLODIPine 5 MG TABLET PO STA (15:17)
[2023-02-17 15:26] LABS: BASOPHILS % (AUTO) 0.6 %; EOSINOPHILS # (AUTO) 0.2 10^3/uL (0.0-0.7); EOSINOPHILS % (AUTO) 2.3 %; HCT - HEMATOCRIT 42.7 % (37.0-47.0); HGB - HEMOGLOBIN 13.8 g/dL (12.0-16.0); LYMPHOCYTES # (AUTO) 1.4 10^3/uL (1.5-3.5); LYMPHOCYTES % (AUTO) 21.5 %; MEAN CORPUSCULAR HEMOGLOBIN 28.9 pg (27.0-31.0); MEAN CORPUSCULAR HGB CONC 32.3 g/dL (32.0-36.0); MEAN CORPUSCULAR VOLUME 89.3 fL (81.0-99.0); MEAN PLATELET VOLUME 10.3 fL (7.9-10.8); MONOCYTES # (AUTO) 0.4 10^3/uL (0.0-1.0); MONOCYTES % (AUTO) 6.7 %; NEUTROPHILS # (AUTO) 4.5 10^3/uL (1.5-6.6); NEUTROPHILS % (AUTO) 68.6 %; PLT - PLATELET COUNT 272 10^3/uL (130-450); RED BLOOD COUNT 4.78 10^6/uL (4.20-5.40); WHITE BLOOD COUNT 6.6 x10^3/uL (4.8-10.8)
[2023-02-17 15:36] LABS: CALCIUM 8.7 mg/dL (8.5-10.3); CREATININE 1.8 mg/dL (0.4-1.0); POTASSIUM 5.1 mmol/L (3.5-5.0)
[2023-02-17] MEDS ORDERED: iohexoL-300 100 ML VIAL ONE (15:38)
[2023-02-17] MEDS ORDERED: SODIUM CHLORIDE 0.9% 1,000 ML IV STA (16:07)
[2023-02-17] MEDS ORDERED: iohexoL-300 100 ML VIAL IVP ONE (16:44)
--- NOTE | 2023-02-17 17:00 | CT Report ---
PROCEDURE: HEAD W INDICATIONS: occipital mass vs cvs, pacemaker CONTRAST: 100 cc Omnipaque 300 TECHNIQUE: 4.5 mm thick angled axial sections acquired from the foramen magnum to the vertex after the administr ation of intravenous contrast. For radiation dose reduction, the following was used: automated expo sure control, adjustment of mA and/or kV according to patient size. COMPARISON: Correlation is made with noncontrast head CT performed earlier in the day. Correlation i s also made of brain MRI, 12/27/2016. FINDINGS: Image quality: Excellent. CSF Spaces: Basal cisterns are patent. No extra-axial fluid collections. Ventricles are normal in size and shape. Brain: There is again seen low density within the left FORGEMAN HELPER distribution. Mild generalized swelling c an be seen at this site. No enhancing masses are detected within this region. No masses or abnormal enhancement can be seen elsewhere. No midline shift. No intracranial bleeds. No abnormal intracranial enhancement. Sultana-white interfa ce appears normal. Skull and face: Calvarium and visualized facial bones appear intact, without suspicious lesions. Sinuses: Visualized sinuses and mastoids are clear. IMPRESSION: Left FORGEMAN HELPER distribution infarction. The swelling observed is attributed to underlying brain edema. A ma ss is possible, yet this is considered to be less likely. If it would be helpful for clinical management decision making, please consider a dedicated brain MRI (without and with contrast) for further evaluation (assuming that there is no contraindication). Reviewed by: Ronnie Silverman MD on 02/17/2023 3:59 PM [email or web address] Approved by: Ronnie Silverman MD on 02/17/2023 3:59 PM [email or web address] Station ID: [id number]
[2023-02-17] MEDS ORDERED: ASPIRIN 325 MG TABLET PO STA (17:18)
[2023-02-17 18:42] VITALS: BP 186/73
== END 2023-02-17 18:42 | disposition home or self-care (01) ==
LOC: ED 13:05
DX: I63.432 Cerebral infarction due to embolism of left posterior cerebral artery (principal); I10 Essential (primary) hypertension; E78.00 Pure hypercholesterolemia, unspecified; I73.9 Peripheral vascular disease, unspecified; E11.9 Type 2 diabetes mellitus without complications; Z79.82 Long term (current) use of aspirin; Z79.4 Long term (current) use of insulin; Z79.899 Other long term (current) drug therapy; Z87.891 Personal history of nicotine dependence; Z95.0 Presence of cardiac pacemaker
CPT/HCPCS: 36415; 70450; 70460; 80048; 85025; 99284; A9270; Q9967

== ENCOUNTER 2023-02-23 11:35 | Emergency (ER) | payer MEDICARE, OTHER ==
--- OUTSIDE RECORDS SUMMARY | 2023-02-23 12:32 | EXTERNAL MEDICAL SUMMARY RPT | Continuity of Care Document ---
:1935 Author Organization [place] Address [address] [place] [address] Phone Care Team Providers Name Role Phone [...]
--- NOTE | 2023-02-23 12:54 | ED Physician Documentation ---
History of Present Illness - Stated complaint Stated Complaint: FATIGUE/HEADACHE/RT EYE VISION LOSS - Chief complaint Chief Complaint: General - History obtained from History obtained from: Patient - Additonal information Additional information: This is a ar 88-year-old woman who I saw recently. 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 She is back at home. Last ni ght she fell going down the stairs. There was no injury. She is accompanied by her granddaughter who is worried about her ability to care for her. That said the patient herself wants to stay in her home. PD PAST MEDICAL HISTORY - Past Medical History Cardiovascular: Hypertension, High cholesterol, Peripheral Vascular Disease Respiratory: None Endocrine/Autoimmune: Type 2 diabetes GI: None : None HEENT: None Psych: None Musculoskeletal: Osteoarthritis Derm: None - Past Surgical History Past Surgical History: Yes Ortho: Knee replacement, Shoulder arthroplasty /[employer]: section Cardiovascular: Pacemaker, Other HEENT: Cataracts, Other - Present Medications Home Medications: Ambulatory Orders Medication Instructions Recorded Confirmed Aspirin [Aspir 81] 81 mg PO DAILY 02/04/14 09/05/18 Lovastatin 10 mg PO QPM 02/04/14 09/05/18 Multivit-Min/FA/Lycopene/Lut 1 tab PO DAILY 02/04/14 09/05/18 [Centrum Silver Tablet] amLODIPine [Norvasc] 5 mg PO DAILY 12/26/16 09/05/18 Insulin Glargine,Hum.rec.anlog 20 units SUBQ QPM 12/27/16 09/05/18 [Lantus] Magnesium Oxide [Mag Ox] 400 mg PO QPM 12/27/16 09/05/18 Gabapentin [Neurontin] 300 mg PO TID PRN #21 03/29/21 predniSONE [Deltasone] 60 mg PO DAILY 5 Days #15 tablet 03/29/21 - Allergies Allergies/Adverse Reactions: Allergies Allergy/AdvReac Type Severity Reaction Status Date / Time No Known Drug Allergies Allergy Verified 02/23/23 11:56 - Social History Does the pt smoke?: Yes Smoking Status: Former smoker PD ED PE NORMAL - Vitals Vital signs reviewed: Yes - General General: Alert and oriented X 3, No acute distress - HEENT HEENT: PERRL, EOMI, Other (Right visual field deficit) - Neck Neck: Supple, no meningeal sign, No bony TTP - Abdomen Abdomen: Non tender - Back Back: No spinal TTP - Neuro Neuro: Alert and oriented X 3, No motor deficit, No sensory deficit, Normal speech Eye Opening: Spontaneous Motor: Obeys Commands Verbal: Oriented GCS Score: 15 Results - Vitals Vitals: Vital Signs - 24 hr 02/23/23 11:47 Temperature 36.8 C Heart Rate 62 Respiratory 16 Rate Blood Pressure 168/57 H O2 Saturation 97 Oxygen O2 Source Room air PD Medical Decision Making - ED course ED course: 88-year-old woman with completed occipital stroke who had a noninjury fall last night and the granddaughter brings her here for potential placement. That said there is no indication for hospital placement and they do not have resources for SNF or assisted living. I spent quite some time with them and recommended that she sign up with Medicaid since she apparently has no financial resources although I did not delve more specifically into that. Also recommended [employer] for potentially a walk-in shower on the ground floor, but the patient did not want to change her bathroom. I had a prolonged discussion with her daughter by phone to and emailed her primary care nurse practitioner with the current issues. Departure - Departure Disposition: 01 Home, Self Care Clinical Impression: Cerebrovascular accident (CVA) Qualifiers: CVA mechanism: unspecified Qualified Code(s): I63.9 - Cerebral infarction, unspecified Condition: Good Record reviewed to determine appropriate education?: Yes Instructions: Falls Change Living Space, ED Prevention Fall Follow-Up: Alea Preciado ARNP [Primary Care Provider] - Comments: Do recommend that you look into a walk-in shower on the ground floor and moving the bedroom to the ground floor so that she do not have to navigate stairs. I recommend that you sign up for Medicaid which can help with some of these things as well as in home or palliative care.
[2023-02-23 13:15] VITALS: BP 167/53
== END 2023-02-23 13:28 | disposition home or self-care (01) ==
LOC: ED 11:35
DX: I63.9 Cerebral infarction, unspecified (principal); I10 Essential (primary) hypertension; E11.9 Type 2 diabetes mellitus without complications; Z79.4 Long term (current) use of insulin; Z87.891 Personal history of nicotine dependence
CPT/HCPCS: 99281; 99283

== ENCOUNTER 2023-03-07 17:42 | Outpatient (CLI) | payer MEDICARE, OTHER | END 2023-03-07 17:43 | disposition left against medical advice (07) | LOC: EMS 17:42 | DX: R53.1 Weakness (principal); R42 Dizziness and giddiness ==

== ENCOUNTER 2023-04-16 16:08 | Outpatient (CLI) | payer MEDICARE, OTHER ==
--- NOTE | 2023-04-17 14:26 | Ultrasound Report ---
PROCEDURE: Carotid Doppler Complete INDICATIONS: HIST OF CEA TECHNIQUE: Color and pulse Doppler interrogation was performed of both carotid systems, with image documentation and velocity measurements. COMPARISON: 12/26/2016. FINDINGS: Right side: Brachial blood pressure: 121/45 mm Hg. Common carotid artery peak systolic velocity: 78.83 cm/sec. Internal carotid artery peak systolic velocity: 79.37 cm/sec. Internal carotid artery end diastolic velocity: 5.34 cm/sec. External carotid artery peak systolic velocity: 89.6 cm/sec. ICA/CCA peak systolic ratio: 1.0 . Sultana scale imaging description: [id number] amount of atherosclerotic plaques are seen in dista l common carotid artery and proximal internal carotid artery.. Percent internal carotid artery stenosis: 1.0. Vertebral artery: Flow direction is antegrade. Left side: Brachial blood pressure: 139/50 mm Hg. Common carotid artery peak systolic velocity: 74 cm/sec. Internal carotid artery peak systolic velocity: 107.91 cm/sec. Internal carotid artery end diastolic velocity: 23.1 cm/sec. External carotid artery peak systolic velocity: 158.2 cm/sec. ICA/CCA peak systolic ratio: 1.5 . Previously 2.6. Sultana scale imaging description: Moderate amount of atherosclerotic plaques are seen in distal common carotid artery and proximal internal and external carotid arteries Percent internal carotid artery stenosis: 50-69%. Vertebral artery: Flow direction is antegrade. IMPRESSION: 1. In the right internal carotid artery, there is less than 50% based on peak systolic velocity crite darin. 2. In the left internal carotid artery, there is 50-69% based on peak systolic velocity criteria. 3. Antegrade blood flow within the right vertebral artery. 4. Antegrade blood flow within the left vertebral artery. The estimate of stenosis included in the report of the imaging study was calculated using the [facility]-end orsed standards of carotid artery stenosis. Reviewed by: Eduardo Royal MD on 04/17/2023 2:25 PM PDT Approved by: Eduardo Royal MD on 04/17/2023 2:25 PM PDT Station ID: [id number]
== END 2023-04-16 16:09 | disposition home or self-care (01) ==
LOC: DI 16:08
PROVIDERS: ATTEND Psychiatry & Neurology Neurology
DX: I65.23 Occlusion and stenosis of bilateral carotid arteries (principal); I67.9 Cerebrovascular disease, unspecified
CPT/HCPCS: 93880

== ENCOUNTER 2023-04-25 15:02 | Outpatient (CLI) | payer MEDICARE, OTHER | END 2023-04-25 15:03 | disposition home or self-care (01) | LOC: DI 15:02 | PROVIDERS: ATTEND Registered Nurse | DX: I08.1 Rheumatic disorders of both mitral and tricuspid valves (principal); I63.40 Cerebral infarction due to embolism of unspecified cerebral artery; I10 Essential (primary) hypertension | CPT/HCPCS: 93306 ==

== ENCOUNTER 2023-05-01 12:52 | Outpatient (CLI) | payer MEDICARE, OTHER ==
[2023-05-01] MEDS ORDERED: ALBUTEROL 1 PUFF INH STA (14:52)
== END 2023-05-01 12:53 | disposition home or self-care (01) ==
LOC: RT 12:52
PROVIDERS: ATTEND Registered Nurse
DX: J44.9 Chronic obstructive pulmonary disease, unspecified (principal)
CPT/HCPCS: 94060; 94729

== ENCOUNTER 2023-05-31 07:33 | Outpatient (CLI) | payer MEDICARE, OTHER ==
[2023-05-31 15:37] LABS: CALCIUM 9.2 mg/dL (8.5-10.3); CREATININE 1.8 mg/dL (0.6-1.3); POTASSIUM 4.8 mmol/L (3.5-4.5)
[2023-05-31 20:53] LABS: ESTIMATED AVERAGE GLUCOSE 148 mg/dL (70-100); HEMOGLOBIN A1c% 6.8 % (4.27-6.07)
== END 2023-05-31 07:34 | disposition home or self-care (01) ==
LOC: LAB.S 07:33
PROVIDERS: ATTEND Registered Nurse
DX: E11.42 Type 2 diabetes mellitus with diabetic polyneuropathy (principal)
CPT/HCPCS: 36415; 80048; 83036

== ENCOUNTER 2023-07-11 07:32 | Outpatient (CLI) | payer MEDICARE, OTHER ==
[2023-07-11 15:13] LABS: BASOPHILS % (AUTO) 0.6 %; EOSINOPHILS # (AUTO) 0.3 10^3/uL (0.0-0.7); EOSINOPHILS % (AUTO) 3.8 %; HCT - HEMATOCRIT 41.2 % (37.0-47.0); HGB - HEMOGLOBIN 12.9 g/dL (12.0-16.0); LYMPHOCYTES # (AUTO) 1.7 10^3/uL (1.5-3.5); LYMPHOCYTES % (AUTO) 24.4 %; MEAN CORPUSCULAR HGB CONC 31.3 g/dL (32.0-36.0); MEAN CORPUSCULAR VOLUME 89.4 fL (81.0-99.0); MEAN PLATELET VOLUME 10.7 fL (7.9-10.8); MONOCYTES # (AUTO) 0.5 10^3/uL (0.0-1.0); MONOCYTES % (AUTO) 7.2 %; NEUTROPHILS # (AUTO) 4.4 10^3/uL (1.5-6.6); NEUTROPHILS % (AUTO) 63.7 %; PLT - PLATELET COUNT 285 10^3/uL (130-450); RED BLOOD COUNT 4.61 10^6/uL (4.20-5.40); RED CELL DISTRIBUTION WIDTH 14.3 % (12.0-15.0); WHITE BLOOD COUNT 6.9 x10^3/uL (4.8-10.8)
[2023-07-11 15:47] LABS: ALBUMIN 4.2 g/dL (3.2-5.5); ALBUMIN/GLOBULIN RATIO 1.7 (1.0-2.2); ALKALINE PHOSPHATASE 68 IU/L (42-121); ALT ALANINE AMINOTRANSFERASE 14 IU/L (10-60); AST ASPARTATE AMINOTRANSFERASE 18 IU/L (10-42); BILIRUBIN,TOTAL 0.4 mg/dL (0.2-1.0); BUN - BLOOD UREA NITROGEN 39 mg/dL (6-20); CALCIUM 9.8 mg/dL (8.5-10.3); CARBON DIOXIDE - CO2 27 mmol/L (21-32); CHLORIDE 107 mmol/L (101-111); CHOL/HDL RATIO 2.8 (<4.4); CHOLESTEROL 159 mg/dL; CREATININE 1.8 mg/dL (0.6-1.3); GFR - MDRD 27 (>89); GLUCOSE 126 mg/dL (74-104); HDL CHOLESTEROL 56 mg/dL; LDL CHOLESTEROL,CALCULATED 79 mg/dL; LDL/HDL RATIO 1.4 (<4.4); MAGNESIUM 1.9 mg/dL (1.7-2.3); PHOSPHORUS 3.9 mg/dL (2.5-5.0); POTASSIUM 4.6 mmol/L (3.5-4.5); SODIUM 141 mmol/L (135-145); TOTAL PROTEIN 6.7 g/dL (6.4-8.9); TRIGLYCERIDES 122 mg/dL (48-352); VLDL CHOLESTEROL 24 mg/dL
[2023-07-11 16:07] LABS: PROTEIN/CREATININE RATIO,URINE 3.8 (<=0.2)
[2023-07-11 16:08] LABS: THYROID STIMULATING HORMONE 3.57 uIU/mL (0.34-5.60)
[2023-07-11 16:17] LABS: BILIRUBIN,URINE NEGATIVE (NEGATIVE); GLUCOSE, URINE (UA) NEGATIVE (NEGATIVE); KETONES,URINE (UA) NEGATIVE (NEGATIVE); LEUKOCYTE ESTERASE, URINE TRACE (NEGATIVE); NITRITE,URINE NEGATIVE (NEGATIVE); OCCULT BLOOD,URINE NEGATIVE (NEGATIVE); PH,URINE 6.5 PH (5.0-7.5); PROTEIN,URINE 100 mg/dL (NEGATIVE); UROBILINOGEN,URINE 0.2 (NORMAL) E.U./dL (NORMAL)
[2023-07-11 16:19] LABS: CLARITY,URINE CLEAR (CLEAR); MICROALBUM/CREATININE RATIO,UR 2536.8 ug/mg (<30.0); MICROALBUMIN,URINE 48.2 mg/dL
[2023-07-11 16:30] LABS: BACTERIA,URINE Rare /HPF (None Seen); RBC,URINE 0-5 /HPF (0-5); SQUAMOUS EPITHELIAL CELL,UR FEW Squamous (<= Few)
[2023-07-11 20:33] LABS: ESTIMATED AVERAGE GLUCOSE 143 mg/dL (70-100); HEMOGLOBIN A1c% 6.6 % (4.27-6.07)
== END 2023-07-11 07:33 | disposition home or self-care (01) ==
LOC: LAB.S 07:32
PROVIDERS: ATTEND Registered Nurse
DX: Z13.228 Encounter for screening for other metabolic disorders (principal); E11.40 Type 2 diabetes mellitus with diabetic neuropathy, unspecified; Z13.220 Encounter for screening for lipoid disorders; Z13.29 Encounter for screening for other suspected endocrine disorder; Z13.0 Encounter for screening for diseases of the blood and blood-forming organs and certain disorders involving the immune mechanism; E11.21 Type 2 diabetes mellitus with diabetic nephropathy; N18.4 Chronic kidney disease, stage 4 (severe); I12.9 Hypertensive chronic kidney disease with stage 1 through stage 4 chronic kidney disease, or unspecified chronic kidney disease; E11.22 Type 2 diabetes mellitus with diabetic chronic kidney disease
CPT/HCPCS: 36415; 80053; 80061; 81001; 82043; 82570; 83036; 83721; 83735; 83970; 84100; 84156; 84443; 85025; 87086

== ENCOUNTER 2023-09-11 10:17 | Outpatient (CLI) | payer MEDICARE, OTHER ==
[2023-09-11 14:49] LABS: ESTIMATED AVERAGE GLUCOSE 166 mg/dL (70-100); HEMOGLOBIN A1c% 7.4 % (4.27-6.07)
[2023-09-11 15:05] LABS: BASOPHILS % (AUTO) 0.5 %; EOSINOPHILS # (AUTO) 0.2 10^3/uL (0.0-0.7); EOSINOPHILS % (AUTO) 2.6 %; HCT - HEMATOCRIT 40.5 % (37.0-47.0); HGB - HEMOGLOBIN 12.7 g/dL (12.0-16.0); LYMPHOCYTES # (AUTO) 1.4 10^3/uL (1.5-3.5); LYMPHOCYTES % (AUTO) 16.7 %; MEAN CORPUSCULAR HEMOGLOBIN 28.2 pg (27.0-31.0); MEAN CORPUSCULAR HGB CONC 31.4 g/dL (32.0-36.0); MEAN PLATELET VOLUME 10.8 fL (7.9-10.8); MONOCYTES # (AUTO) 0.8 10^3/uL (0.0-1.0); MONOCYTES % (AUTO) 8.8 %; NEUTROPHILS # (AUTO) 6.1 10^3/uL (1.5-6.6); NEUTROPHILS % (AUTO) 70.9 %; PLT - PLATELET COUNT 285 10^3/uL (130-450); RED CELL DISTRIBUTION WIDTH 14.2 % (12.0-15.0); WHITE BLOOD COUNT 8.6 x10^3/uL (4.8-10.8)
[2023-09-11 15:11] LABS: BILIRUBIN,URINE NEGATIVE (NEGATIVE); GLUCOSE, URINE (UA) NEGATIVE (NEGATIVE); KETONES,URINE (UA) NEGATIVE (NEGATIVE); LEUKOCYTE ESTERASE, URINE NEGATIVE (NEGATIVE); NITRITE,URINE NEGATIVE (NEGATIVE); OCCULT BLOOD,URINE NEGATIVE (NEGATIVE); PROTEIN,URINE 100 mg/dL (NEGATIVE); UROBILINOGEN,URINE 0.2 (NORMAL) E.U./dL (NORMAL)
[2023-09-11 15:26] LABS: ALBUMIN 4.3 g/dL (3.2-5.5); CALCIUM 9.6 mg/dL (8.5-10.3); CREATININE 1.7 mg/dL (0.6-1.3); MAGNESIUM 2.1 mg/dL (1.7-2.3); PHOSPHORUS 3.8 mg/dL (2.5-5.0); POTASSIUM 5.2 mmol/L (3.5-4.5)
[2023-09-11 15:29] LABS: THYROID STIMULATING HORMONE 4.32 uIU/mL (0.34-5.60)
[2023-09-11 15:30] LABS: CREATININE,URINE 22.5 mg/dL
[2023-09-11 15:30] LABS: BACTERIA,URINE Rare /HPF (None Seen); CLARITY,URINE CLEAR (CLEAR); CREATININE,URINE 22.5 mg/dL; PROTEIN/CREATININE RATIO,URINE 3.5 (<=0.2); RBC,URINE 0-5 /HPF (0-5); SQUAMOUS EPITHELIAL CELL,UR FEW Squamous (<= Few); WBC,URINE 0-3 /HPF (0-5)
[2023-09-11 15:40] LABS: MICROALBUMIN,URINE 55.8 mg/dL
[2023-09-11 15:58] LABS: ALBUMIN 4.3 g/dL (3.2-5.5); ALBUMIN/GLOBULIN RATIO 1.5 (1.0-2.2); ALKALINE PHOSPHATASE 68 IU/L (42-121); ALT ALANINE AMINOTRANSFERASE 15 IU/L (10-60); AST ASPARTATE AMINOTRANSFERASE 20 IU/L (10-42); BILIRUBIN,TOTAL 0.4 mg/dL (0.2-1.0); BUN - BLOOD UREA NITROGEN 42 mg/dL (6-20); CALCIUM 9.6 mg/dL (8.5-10.3); CARBON DIOXIDE - CO2 28 mmol/L (21-32); CHLORIDE 106 mmol/L (101-111); CHOL/HDL RATIO 3.2 (<4.4); CHOLESTEROL 152 mg/dL; CREATININE 1.7 mg/dL (0.6-1.3); GFR - MDRD 28 (>89); GLUCOSE 79 mg/dL (74-104); HDL CHOLESTEROL 48 mg/dL; LDL CHOLESTEROL,CALCULATED 71 mg/dL; LDL/HDL RATIO 1.5 (<4.4); POTASSIUM 5.3 mmol/L (3.5-4.5); SODIUM 140 mmol/L (135-145); TOTAL PROTEIN 7.1 g/dL (6.4-8.9); TRIGLYCERIDES 164 mg/dL (48-352); VLDL CHOLESTEROL 33 mg/dL
== END 2023-09-11 10:18 | disposition home or self-care (01) ==
LOC: LAB.S 10:17
PROVIDERS: ATTEND Registered Nurse
DX: E11.42 Type 2 diabetes mellitus with diabetic polyneuropathy (principal); Z13.228 Encounter for screening for other metabolic disorders; Z13.220 Encounter for screening for lipoid disorders; Z13.29 Encounter for screening for other suspected endocrine disorder; Z13.0 Encounter for screening for diseases of the blood and blood-forming organs and certain disorders involving the immune mechanism; I12.9 Hypertensive chronic kidney disease with stage 1 through stage 4 chronic kidney disease, or unspecified chronic kidney disease; E11.22 Type 2 diabetes mellitus with diabetic chronic kidney disease; N18.4 Chronic kidney disease, stage 4 (severe)
CPT/HCPCS: 36415; 80053; 80061; 80069; 81001; 82043; 82570; 83036; 83721; 83735; 84156; 84443; 85025; 87086

== ENCOUNTER 2023-10-10 12:01 | Outpatient (CLI) | payer MEDICARE, OTHER ==
[2023-10-10 14:52] LABS: HCT - HEMATOCRIT 39.4 % (37.0-47.0); HGB - HEMOGLOBIN 12.5 g/dL (12.0-16.0); MEAN CORPUSCULAR HEMOGLOBIN 28.5 pg (27.0-31.0); MEAN CORPUSCULAR HGB CONC 31.7 g/dL (32.0-36.0); MEAN PLATELET VOLUME 10.6 fL (7.9-10.8); RED BLOOD COUNT 4.38 10^6/uL (4.20-5.40); RED CELL DISTRIBUTION WIDTH 14.3 % (12.0-15.0); WHITE BLOOD COUNT 6.2 x10^3/uL (4.8-10.8)
[2023-10-10 15:41] LABS: ESTIMATED AVERAGE GLUCOSE 166 mg/dL (70-100); HEMOGLOBIN A1c% 7.4 % (4.27-6.07)
[2023-10-10 15:43] LABS: ALBUMIN 4.1 g/dL (3.2-5.5); CALCIUM 9.9 mg/dL (8.5-10.3); CREATININE 1.7 mg/dL (0.6-1.3)
== END 2023-10-10 12:02 | disposition home or self-care (01) ==
LOC: LAB.S 12:01
PROVIDERS: ATTEND Internal Medicine Nephrology
DX: I12.9 Hypertensive chronic kidney disease with stage 1 through stage 4 chronic kidney disease, or unspecified chronic kidney disease (principal); E11.22 Type 2 diabetes mellitus with diabetic chronic kidney disease; N18.4 Chronic kidney disease, stage 4 (severe)
CPT/HCPCS: 36415; 80069; 81001; 82570; 83036; 83735; 84156; 85027; 87086

== ENCOUNTER 2023-10-15 08:00 | Outpatient (CLI) | payer MEDICARE, OTHER ==
[2023-10-15 19:54] LABS: BILIRUBIN,URINE NEGATIVE (NEGATIVE); GLUCOSE, URINE (UA) NEGATIVE (NEGATIVE); KETONES,URINE (UA) NEGATIVE (NEGATIVE); LEUKOCYTE ESTERASE, URINE NEGATIVE (NEGATIVE); NITRITE,URINE NEGATIVE (NEGATIVE); OCCULT BLOOD,URINE NEGATIVE (NEGATIVE); PH,URINE 5.5 PH (5.0-7.5); PROTEIN,URINE 100 mg/dL (NEGATIVE); UROBILINOGEN,URINE 0.2 (NORMAL) E.U./dL (NORMAL)
[2023-10-15 19:58] LABS: CLARITY,URINE CLEAR (CLEAR)
[2023-10-15 20:02] LABS: BACTERIA,URINE Rare /HPF (None Seen); RBC,URINE 0-5 /HPF (0-5); SQUAMOUS EPITHELIAL CELL,UR MOD Squamous (<= Few); WBC,URINE 0-3 /HPF (0-5)
[2023-10-15 20:08] LABS: CREATININE,URINE 45.1 mg/dL; PROTEIN/CREATININE RATIO,URINE 1.9 (<=0.2)
== END 2023-10-15 23:59 | disposition home or self-care (01) ==
LOC: LAB.R 08:00
PROVIDERS: ATTEND Internal Medicine Nephrology
DX: I12.9 Hypertensive chronic kidney disease with stage 1 through stage 4 chronic kidney disease, or unspecified chronic kidney disease (principal); E11.22 Type 2 diabetes mellitus with diabetic chronic kidney disease; N18.4 Chronic kidney disease, stage 4 (severe)
CPT/HCPCS: 81001; 81003; 82570; 84156; 87086

== ENCOUNTER 2024-01-28 09:55 | Outpatient (CLI) | payer MEDICARE, OTHER ==
[2024-01-28 15:14] LABS: CALCIUM 9.4 mg/dL (8.5-10.3); CREATININE 1.8 mg/dL (0.6-1.3)
[2024-01-28 20:28] LABS: ESTIMATED AVERAGE GLUCOSE 192 mg/dL (70-100); HEMOGLOBIN A1c% 8.3 % (4.27-6.07)
== END 2024-01-28 09:56 | disposition home or self-care (01) ==
LOC: LAB.S 09:55
PROVIDERS: ATTEND Registered Nurse
DX: E11.42 Type 2 diabetes mellitus with diabetic polyneuropathy (principal)
CPT/HCPCS: 36415; 80048; 82043; 82570; 83036

== ENCOUNTER 2024-01-29 07:00 | Outpatient (CLI) | payer MEDICARE, OTHER ==
[2024-01-29 20:53] LABS: CREATININE,URINE 32.8 mg/dL
[2024-01-29 21:04] LABS: MICROALBUM/CREATININE RATIO,UR 1948.2 ug/mg (<30.0); MICROALBUMIN,URINE 63.9 mg/dL
== END 2024-01-29 23:59 | disposition home or self-care (01) ==
LOC: LAB.S 07:00
PROVIDERS: ATTEND Registered Nurse
DX: E11.42 Type 2 diabetes mellitus with diabetic polyneuropathy (principal)
CPT/HCPCS: 82043; 82570